=== PATIENT | male | born 1985 | race Caucasian/White ===

== ENCOUNTER 2024-12-30 13:07 | Emergency (ER) | payer MEDICAID ==
[~2024-12-30] VITALS: Ht 165.1 cm; Wt 91.0 kg
[2024-12-30 13:10] VITALS: O2SAT 99
[2024-12-30] MEDS ORDERED: FAMOTIDINE 20MG TABLET PO STA (13:41)
[2024-12-30] MEDS: ONDANSETRON 4MG ODT PO ONE (14:08)
[2024-12-30] MEDS: FAMOTIDINE 20MG TABLET PO SCH (14:08)
[2024-12-30 14:35] LABS: HEMATOCRIT. 43.2 % (42.0-52.0); HEMOGLOBIN. 14.9 g/dL (14.0-18.0); MEAN PLATELET VOLUME 9.1 fl (7.4-10.4); PLATELET 277 x1000/uL (130-400); RED BLOOD CELL COUNT 4.94 mill/uL (4.7-6.1); RED CELL DISTRIBUTION WIDTH 13.5 % (11.6-14.6)
[2024-12-30 14:50] LABS: CREATININE 0.9 mg/dL (0.6-1.3); UREA NITROGEN BLOOD 18 mg/dL (9-23)
[2024-12-30 14:51] LABS: ETHANOL BLOOD < 10 mg/dL (<10)
[2024-12-30 14:52] LABS: ASPARTATE AMINOTRANSFERASE 20 IU/L (<34); BILIRUBIN DIRECT 0.1 mg/dL (<=3.0); BILIRUBIN TOTAL 0.4 mg/dL (0.1-1.0); INR 1.0; PROTEIN TOTAL 8.1 g/dL (6.0-8.3)
[2024-12-30] MEDS: MECLIZINE 25MG TABLET PO ONE (15:43)
[2024-12-30 16:01] LABS: LYMPHOCYTES % MANUAL 10.0 % (20.0-50.0); NEUTROPHILS % MANUAL 90.0 % (45.0-75.0); PLATELET ESTIMATE NORMAL
[2024-12-30] MEDS ORDERED: TOPUD PO (16:44)
[2024-12-30] MEDS ORDERED: MECL-299 MT (16:44)
[2024-12-30] MEDS ORDERED: IBUP-2028 MT (16:44)
[2024-12-30] MEDS ORDERED: NIRM1TAB8 PO (16:44)
[2024-12-30 17:07] LABS: INFLUENZA TYPE A Presumptive Negative (Pres. Neg.)
[2024-12-30 17:08] LABS: INFLUENZA TYPE B Presumptive Negative (Pres. Neg.); RESPIRATORY SYNCYTIAL VIRUS Not Detected (Not Detectd)
[2024-12-30 17:37] VITALS: BP 136/88; PULSE 77; RESP 18; TEMP 36.8; O2SAT 100
== END 2024-12-30 17:39 | disposition home or self-care (01) ==
LOC: ER 13:22
DX: U07.1 COVID-19 (principal); R51.9 Headache, unspecified; Z79.899 Other long term (current) drug therapy
CPT/HCPCS: 80076; 80048; 80320; 83690; 85025; 85610; 87420; 87804 ×2; 36415; 70450; 74176; 99284; 87426; J8597; Q0162; G0480

== ENCOUNTER 2025-04-17 14:27 | Emergency (ER) | payer MEDICAID, OTHER ==
[~2025-04-17] VITALS: Ht 177.8 cm; Wt 82.0 kg
[~2025-04-17 14:27] MED LIST: IBUP-2028 MT; MECL-299 MT; NIRM1TAB11 PO; TOPUD PO
[2025-04-17 14:32] VITALS: BP 118/67; PULSE 89; RESP 18; TEMP 97.8; O2SAT 99
[2025-04-17 15:06] LABS: BASOPHILS % 0.3 % (0.0-2.0); EOSINOPHILS % 0.4 % (0.0-5.0); HEMATOCRIT. 42.8 % (42.0-52.0); HEMOGLOBIN. 14.3 g/dL (14.0-18.0); LYMPHOCYTES % 12.5 % (20.0-50.0); MEAN PLATELET VOLUME 8.5 fl (7.4-10.4); MONOCYTES % 3.4 % (2.0-8.0); NEUTROPHILS % 83.4 % (40.0-76.0); PLATELET 302 x1000/uL (130-400); RED BLOOD CELL COUNT 4.95 mill/uL (4.7-6.1); RED CELL DISTRIBUTION WIDTH 13.8 % (11.6-14.6)
[2025-04-17] MEDS: SODIUM CHLORIDE 0.9% 1,000 ML IV ONE (15:09)
[2025-04-17] MEDS: ONDANSETRON HCL 4MG/2ML INJ IV ONE (15:15)
[2025-04-17] MEDS: METOCLOPRAMIDE HCL 10MG/2ML VIAL IV ONE (15:15)
[2025-04-17 15:20] LABS: CREATININE 1.0 mg/dL (0.6-1.3); UREA NITROGEN BLOOD 11 mg/dL (9-23)
[2025-04-17 15:21] LABS: PROTEIN TOTAL 7.7 g/dL (6.0-8.3)
[2025-04-17 15:22] LABS: ASPARTATE AMINOTRANSFERASE 25 IU/L (<34); BILIRUBIN DIRECT 0.1 mg/dL (<=3.0)
[2025-04-17 15:23] LABS: BILIRUBIN TOTAL 0.5 mg/dL (0.1-1.0)
[2025-04-17] MEDS ORDERED: ONDA-239 PO (16:09)
[2025-04-17] MEDS ORDERED: METO-293 MT (16:09)
== END 2025-04-17 16:53 | disposition home or self-care (01) ==
LOC: ER 14:27
DX: R11.2 Nausea with vomiting, unspecified (principal); Z79.899 Other long term (current) drug therapy; Z20.822 Contact with and (suspected) exposure to COVID-19
CPT/HCPCS: 99284; 96374; 96361; 96375; 87426; 80076; 80048; 83690; 83735; 85025; 36415; J2765; J2405; J7030